=== PATIENT | female | born 1970 | race American Indian/Alaskan Native ===

== ENCOUNTER 2016-12-16 20:56 | Emergency (ER) | payer MEDICAID ==
[2016-12-16] MEDS ORDERED: MORPHINE IV ONE (22:17)
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
[2016-12-16] MEDS ORDERED: NACL 0.9% 1000 ML 1,000 ML IV ONE (22:23)
[2016-12-16 23:47] LABS: Basophils % (Auto) 0.4 % (0.0-1.8); Eosinophils % (Auto) 2.1 % (0.0-4.3); Hematocrit 37.2 % (30.3-42.9); Hemoglobin 11.9 gm/dl (10.1-14.3); Mean Corpuscular HGB Conc 32 % (30-34); Mean Corpuscular Hemoglobin 28 pg (28-32); Mean Corpuscular Volume 87 fl (79-97); Platelet Count 224 K/mm3 (140-440); Red Cell Distribution Width 14.7 % (13.2-15.2)
[2016-12-16 23:57] LABS: INR 1.03 (0.87-1.13)
[2016-12-16 23:58] LABS: Partial Thromboplastin Time 26.2 Sec. (24.2-36.6)
[2016-12-17 00:43] LABS: Anion Gap 17 mmol/L; BUN/Creatinine Ratio 13.33; Blood Urea Nitrogen 8 mg/dL (7-17); Carbon Dioxide 23 mmol/L (22-30); Creatine Kinase 92 units/L (30-135); Glucose 92 mg/dL (65-100); Potassium 3.7 mmol/L (3.6-5.0); Sodium 139 mmol/L (137-145)
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
[2016-12-17 03:10] VITALS: BP 130/95
--- NOTE | 2016-12-17 07:07 | XRay Report ---
Single view chest: History: Trauma. Findings: Normal cardiomediastinal silhouette. Trachea is midline. No consolidation, pneumothorax or pleural effusion. Impression: No acute cardiopulmonary findings.
== END 2016-12-17 03:52 | disposition short-term general hospital (02) ==
LOC: EEVIPCON 20:56 → ED 20:56
DX: R53.1 Weakness (principal); R07.9 Chest pain, unspecified; Z86.73 Personal history of transient ischemic attack (TIA), and cerebral infarction without residual deficits; Z88.2 Allergy status to sulfonamides; F41.9 Anxiety disorder, unspecified; Y04.0XXA Assault by unarmed brawl or fight, initial encounter; Y93.89 Activity, other specified; Y92.89 Other specified places as the place of occurrence of the external cause; Y99.8 Other external cause status
CPT/HCPCS: 36415; 70450; 71010; 72125; 80048; 82550; 82962; 84484; 84702; 85025; 85610; 85730; 93005; 93010; 96361; 96374; 99285; J2270; J7030